=== PATIENT | female | born 1965 | race Caucasian/White ===

== ENCOUNTER 2018-02-26 14:09 | Emergency (ER) | payer BC, MEDICAID, OTHER ==
[2018-02-26 14:25] VITALS: BP 140/83
--- NOTE | 2018-02-26 14:32 | ER Document Report ---
HPI - HPI Patient complains to provider of: black spider bite Onset: Other - prior to arrival Onset/Duration: Sudden Pain Level: 1 Context: 53 stung by possible black elana spide when she picked up a cement bag prior to arrival. felt sting, caught the black spider which had some orange on its stomach and felt nauseated afterwards with some soreness to the right forearm near the location of the bite. Associated Symptoms: None Exacerbated by: Denies Relieved by: Denies - ROS ROS below otherwise negative: Yes Systems Reviewed and Negative: Yes All other systems reviewed and negative Past Medical History - General Information source: Patient - Social History Smoking Status: Current Every Day Smoker Lives with: Family Family History: Reviewed & Not Pertinent - Medical History Medical History: Negative Surgical Hx: Negative Vertical Provider Document - CONSTITUTIONAL Agree With Documented VS: Yes Exam Limitations: No Limitations General Appearance: No Apparent Distress - INFECTION CONTROL TRAVEL OUTSIDE OF THE [place] IN LAST 30 DAYS: No - MUSCULOSKELETAL/EXTREMETIES Musculoskeletal/Extremeties: MAEW, FROM - NEURO Level of Consciousness: Awake - DERM Notes: 1-2 mm indurated bite site without erythema right volar forearm Course - Vital Signs Vital signs: Temp Pulse Resp BP Pulse Ox 98.4 F 74 20 140/83 H 100 02/26/18 14:23 02/26/18 14:23 02/26/18 14:23 02/26/18 14:23 02/26/18 14:23 Discharge - Discharge Clinical Impression: possible black spider bite Condition: Good Disposition: HOME, SELF-CARE Instructions: Black Spider Bite ([facility]) Additional Instructions: watch for signs of infection or tissue sloughing to er any concerns
== END 2018-02-26 15:34 | disposition home or self-care (01) ==
LOC: ER 14:09
DX: S50.861A Insect bite (nonvenomous) of right forearm, initial encounter (principal); R11.0 Nausea; F17.200 Nicotine dependence, unspecified, uncomplicated; W57.XXXA Bitten or stung by nonvenomous insect and other nonvenomous arthropods, initial encounter; Y92.9 Unspecified place or not applicable
CPT/HCPCS: 99281